=== PATIENT | female | born 2005 | race African-American/Black ===

== ENCOUNTER 2024-03-29 17:52 | Emergency (ER) | payer OTHER, SELFPAY ==
[2024-03-29] MEDS ORDERED: Dexamethasone 10 MG/ML VIAL ONE (19:21)
== END 2024-03-29 19:27 | disposition home or self-care (01) ==
LOC: ERS 17:52
DX: J02.0 Streptococcal pharyngitis (principal)
CPT/HCPCS: 71045; 87081; 87430; 93005; J1100

== ENCOUNTER 2024-05-28 02:23 | Emergency (ER) | payer SELFPAY ==
[2024-05-28] MEDS ORDERED: Ondansetron ODT 4 MG TAB ONE (04:01)
== END 2024-05-28 04:03 | disposition home or self-care (01) ==
LOC: ERS 02:23
DX: J10.00 Influenza due to other identified influenza virus with unspecified type of pneumonia (principal)
CPT/HCPCS: 87081; 87428; 87430; 99283; Q0162